=== PATIENT | female | born 1965 | race African-American/Black ===

== ENCOUNTER 2023-08-16 07:20 | Day surgery (SDC) | payer BC, OTHER ==
[2023-08-10 15:42] VITALS: BMI 31.4
[2023-08-16] MEDS ORDERED: MIDAZOLAM HCL 2 MG/2 ML SINGLE DOSE VIAL ONE (08:15)
[2023-08-16] MEDS ORDERED: LIDOCAINE HCL/PF 2% SDV 5ML VIAL ONE ×2 (08:15→08:16)
[2023-08-16] MEDS ORDERED: PROPOFOL 20 ML ONE (08:15)
[2023-08-16] MEDS ORDERED: LIDOCAINE HCL 2% JELLY 11 ML TP ONE (08:16)
[2023-08-16] MEDS ORDERED: SUCCINYLCHOLINE CHLORIDE 200 MG/10 ML SYRINGE ONE (08:17)
[2023-08-16] MEDS ORDERED: BUPIVACAINE HCL/PF 0.25% (2.5MG/ML) 10 ML VIAL ONE (08:18)
[2023-08-16] MEDS ORDERED: ONDANSETRON 4 MG/2 ML VIAL IVPB PRN (08:30)
[2023-08-16] MEDS ORDERED: oxyCODONE HCL 5 MG TABLET PO PRN ×4 (08:30→10:44)
[2023-08-16] MEDS ORDERED: LACTATED RINGERS SOLUTION 1,000 ML IV SCH (08:30)
[2023-08-16] MEDS ORDERED: DEXAMETHASONE SOD PHOSPHATE 4 MG/1 ML VIAL ONE (08:40)
[2023-08-16] MEDS ORDERED: ceFAZolin SODIUM 1 GM VIAL ONE (08:40)
[2023-08-16] MEDS ORDERED: KETOROLAC TROMETHAMINE 30 MG/1 ML VIAL ONE (08:40)
[2023-08-16] MEDS ORDERED: PROMETHAZINE HCL 25 MG/1 ML VIAL IVPB PRN (10:44)
[2023-08-16] MEDS ORDERED: ONDANSETRON 4 MG/2 ML VIAL IVPUSH PRN (10:44)
[2023-08-16 10:54] VITALS: TEMP 97.8
[2023-08-16] MEDS ORDERED: ONDANSETRON 4 MG/2 ML VIAL ONE (11:45)
[2023-08-16] MEDS ORDERED: FENTANYL CITRATE/PF 50 MCG/ML VIAL ONE (11:45)
[2023-08-16] MEDS ORDERED: oxyCODONE HCL 5 MG TABLET ONE (12:13)
[2023-08-16 13:33] VITALS: RESP 16
[2023-08-16 13:36] VITALS: BP 124/72; PULSE 90
== END 2023-08-16 13:25 | disposition home or self-care (01) ==
LOC: FASU 07:20
PROVIDERS: ATTEND Plastic Surgery
PROC: 0HPT0JZ Removal of Synthetic Substitute from Right Breast, Open Approach (ICD-10-PCS; 2023-08-16)
PROC: 0HPU0JZ Removal of Synthetic Substitute from Left Breast, Open Approach (ICD-10-PCS; principal; 2023-08-16 08:50)
DX: T85.43XA Leakage of breast prosthesis and implant, initial encounter (principal); T85.44XA Capsular contracture of breast implant, initial encounter; Y82.8 Other medical devices associated with adverse incidents; Y92.9 Unspecified place or not applicable; Z85.3 Personal history of malignant neoplasm of breast; Z90.13 Acquired absence of bilateral breasts and nipples
CPT/HCPCS: 88304-TC; 94760